=== PATIENT | male | born 1965 | race Caucasian/White ===

== ENCOUNTER 2022-07-30 09:27 | Emergency (ER) | payer SELFPAY ==
[~2022-07-30] VITALS: Ht 167.6 cm; Wt 70.3 kg
[~2022-07-30 09:27] MED LIST: IBUP-1969 PO
[2022-07-30 09:30] VITALS: BP_SYST 128
--- NOTE | 2022-07-30 09:40 | NUR ---
Patient triaged and placed in waiting room. VSS and patient appears in no acute distress at this time. Accompanied by FAMILY, awaiting available bed, and MD notified of need for MSE.
--- NOTE | 2022-07-30 10:33 | NUR ---
DR CLEARY OUT TO TRIAGE ROOM FOR EVALUATION
[2022-07-30 11:07] LABS: BASOPHILS # (AUTO) 0.1 K/uL (0.0-0.2); BASOPHILS % (AUTO) 0.6 % (0.0-2.0); EOSINOPHILS # (AUTO) 0.1 K/uL (0.0-0.4); EOSINOPHILS % (AUTO) 1.2 % (0.0-4.0); HEMATOCRIT 45.5 % (36-54); HEMOGLOBIN 15.3 g/dL (14.0-18.0); LYMPHOCYTES # (AUTO) 1.5 K/uL (1.0-5.5); LYMPHOCYTES % (AUTO) 17.1 % (20.5-51.5); MEAN CORPUSCULAR HEMOGLOBIN 31 pg (27-31); MEAN CORPUSCULAR HGB CONC 34 % (32-36); MEAN CORPUSCULAR VOLUME 91 fL (79.0-98.0); MONOCYTES # (AUTO) 0.6 K/uL (0.0-1.0); MONOCYTES % (AUTO) 6.9 % (1.7-9.3); NEUTROPHILS # (AUTO) 6.5 K/uL (1.8-7.7); NEUTROPHILS % (AUTO) 74.2 % (40.0-70.0); PLATELET COUNT (AUTO) 203 K/uL (130-430); RED BLOOD CELL COUNT(AUTO) 4.99 MIL/uL (4.2-6.2); RED CELL DISTRIBUTION WIDTH 14.1 % (9.0-15.0); WHITE BLOOD COUNT (AUTO) 8.8 K/uL (4.8-10.8)
[2022-07-30 11:13] LABS: CALCIUM 9.4 mg/dL (8.4-11.0); CREATININE 0.84 mg/dL (0.55-1.30)
[2022-07-30 11:26] LABS: ALBUMIN 3.7 g/dL (3.4-4.8); C-REACTIVE PROTEIN QUANT 16.4 mg/dL (0-0.5); TOTAL BILIRUBIN 0.3 mg/dL (0.0-1.0)
--- NOTE | 2022-07-30 12:10 | NUR ---
GIGI BACK TO BED #4 AND REPORT GIVEN TO JANIYA
[2022-07-30] MEDS ORDERED: IBUP-1969 PO (13:06)
[2022-07-30] MEDS ORDERED: IBUP-1971 PO (13:06)
[2022-07-30] MEDS ORDERED: CEPH250C PO (13:06)
[2022-07-30] MEDS ORDERED: LEVO-62 PO (13:49)
--- NOTE | 2022-07-30 13:49 | NUR ---
COVID AND FLU SWABBED AND SENT TO LAB
[2022-07-30] MEDS ORDERED: levoFLOXacin 500 MG TABLET PO ONE (14:00)
--- NOTE | 2022-07-30 14:06 | NUR ---
PT MEDICALLY CLEARED FOR DISCHARGE. D/C INSTRUCTIONS GIVEN TO PT. PT TO FOLLOW-UP WITH PCP WITHIN 1-3 DAYS AND TO RETURN TO ED FOR WORSENING S/S. PT VERBALZIED UNDERSTANDING. PT [id number], NAD, WRISTBAND REMOVED. PT AMBULATORY WITH STEADY GAIT. PT LEFT ED WITH ALL BELONGINGS.
[2022-07-30 14:10] VITALS: BP_SYST 121
--- NOTE | 2022-07-30 14:50 | NUR ---
Pt notified about influenza B + via phone , MD DR Iniguez notified.
== END 2022-07-30 14:06 | disposition home or self-care (01) ==
LOC: SED 09:27
DX: J18.9 Pneumonia, unspecified organism (principal); R50.9 Fever, unspecified; R05.9 Cough, unspecified; M79.18 Myalgia, other site; Z79.899 Other long term (current) drug therapy; Z20.822 Contact with and (suspected) exposure to COVID-19
CPT/HCPCS: 36415; 71045; 80053; 83605; 85025; 86140; 99284